=== PATIENT | female | born 1985 | race Caucasian/White ===

== ENCOUNTER 2021-05-07 22:18 | Emergency (ER) | payer MEDICARE, MEDICAID ==
[~2021-05-07] VITALS: Ht 165.1 cm; Wt 64.0 kg
[2021-05-07] MEDS ORDERED: ONDANSETRON HCL 4MG/2ML INJ IV STA (23:06)
[2021-05-08 03:00] VITALS: BP 105/67
== END 2021-05-08 03:15 | disposition home or self-care (01) ==
LOC: ER 22:18
DX: T51.0X1A Toxic effect of ethanol, accidental (unintentional), initial encounter (principal); I49.9 Cardiac arrhythmia, unspecified; Y92.9 Unspecified place or not applicable
CPT/HCPCS: 36415; 80320; 93005; 96374; 99284; J2405; G0480